=== PATIENT | male | born 1990 | race Caucasian/White ===

== ENCOUNTER 2024-12-28 22:47 | Emergency (ER) | payer OTHER, SELFPAY ==
[2024-12-28 22:49] VITALS: BMI 24.3
--- NOTE | 2024-12-28 22:57 | EKG_ITS ---
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
[2024-12-28 23:03] VITALS: BP 123/80; PULSE 136; RESP 18; TEMP 36.7; O2SAT 97
--- NOTE | 2024-12-28 23:20 | EDNOTE_ITS ---
<Statement entered by Emilia Mandujano MD - 12/29/24 04:03> As co-signing physician, I was present and available for consult prn. I concur with the plan and care as documented by the midlevel provider. 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 Limitations: no limitations Related Data Home Medications ?Medication ?Instructions ?Recorded ?Confirmed ibuprofen 600 mg tablet 600 mg PO QID PRN 07/18/18 Previous Rx's ?Medication ?Instructions ?Recorded arm brace (Elbow Strap) ##1 03/08/17 epinephrine 0.3 mg/0.3 mL 0.3 ml subcut QDAY PRN 12/29 injection, auto-injector hypersensitivity reaction #2 ea prednisone 50 mg tablet 50 mg PO QDAY 4 days #4 tabs 12/29/24 Allergies Allergy/AdvReac Type Severity Reaction Status Date / Time Penicillins Allergy Unknown Verified 07/18/18 17:11 Review of Systems Review of Systems Systems Reviewed: All systems reviewed, normal except as documented Constitutional Constitutional: Reports system reviewed and no additional complaints, except as documented, Denies fever(s) and Denies headache(s) ENT Ears, Nose, Mouth, and Throat: Denies disequilibrium and Denies headache(s) Cardiovascular Cardiovascular: Reports system reviewed and no additional complaints, except as documented, Denies chest pain and Reports dyspnea Respiratory Respiratory: Reports system reviewed and no additional complaints, except as documented, Reports as per HPI, Denies cough and Reports dyspnea Gastrointestinal Gastrointestinal: Reports system reviewed and no additional complaints, except as documented, Denies abdominal pain, Denies nausea and Denies vomiting Integumentary/Breasts Skin/Breast: Reports as per HPI, Reports pruritus, Reports rash and Reports skin swelling Neurologic Neurologic: Reports system reviewed and no additional complaints, except as documented, Denies confusion, Denies disequilibrium and Denies headache(s) Psychiatric Psychiatric: Denies confusion Past Medical History Past Medical History CARDIAC: Negative Congestive Heart Failure RESPIRATORY: Negative Chronic Obstructive Pulmonary Disease (COPD) GENITOURINARY: Negative Renal Disease ENDOCRINE: Negative Diabetes Mellitus Type 1 or Diabetes Mellitus Type 2 Social History SMOKING STATUS: Never smoker ED Exam General Limitations: Present no limitations General appearance: Present alert and in no apparent distress Head Head exam: Present atraumatic Eye Eye exam: Present normal appearance, PERRL and EOMI ENT ENT exam: Present mucous membranes moist and other (L facial swelling) Expanded ENT Exam Throat exam: Present tonsillomegaly (mild); Absent tonsillar erythema, tonsillar exudate, R peritonsillar mass, L peritonsillar mass or muffled voice Neck Neck exam: Present normal inspection, full ROM and trachea midline Chest Chest inspection: Present normal inspection and symmetric chest wall rise Respiratory Respiratory exam: Present normal lung sounds bilaterally Cardiovascular Cardiovascular exam: Present regular rate, normal rhythm and normal heart sounds Abdominal Exam Abdominal exam: Present soft and normal bowel sounds Extremities Exam Extremities exam: Present normal inspection and full ROM Back Exam Back exam: Present normal inspection and full ROM Neurological Exam Neurological exam: Present alert, oriented X3 and CN II-XII intact Psychiatric Psychiatric exam: Present normal affect and normal mood Skin Skin exam: Present warm, dry, intact and normal color Course Quality Measures none Orders Category Date Time Status School Age Program Associate Q4H START 00 Care 12/28/24 23:10 Active EKG (ED ONLY) *Do not use* NOW Care 12/28/24 22:57 Completed Insert IV NOW Care 12/28/24 23:09 Active EKG (ED Only) Stat Exams 12/28/24 22:57 Draft DiphenhydrAMINE INJ [Benadryl Inj] Med 12/28/24 23:09 Discontinued 50 mg IVP X1 ONE EPINEPHrine Inj [Adrenalin Inj] Med 12/28/24 23:09 Discontinued 0.5 mg IM X1 ONE Famotidine Inj [Pepcid Inj] Med 12/28/24 23:09 Discontinued 20 mg IVP X1 ONE MethylPREDNISolone.* [SoluMEDROL Inj] Med 12/28/24 23:09 Discontinued 125 mg IVP X1 ONE Sodium Chloride 0.9% 1000 ml [Ns] 1,000 ml Med 12/28/24 23:09 Discontinued IV 999 mls/hr Vital Signs Vital signs: Vital Signs Temperature 98.1 F 12/28/24 23:03 Pulse Rate 136 H 12/28/24 23:03 Respiratory Rate 18 02/22/25 23:03 Blood Pressure 123/80 12/28/24 23:03 Pulse Oximetry (%) 97 12/28/24 23:03 Oxygen Delivery Method Room Air 12/28/24 23:03 O2 at 97% on RA and WNLs Allergic Reaction MDM Narrative MDM Narrative:: 34M with history of unknown cardiac disorder (on metoprolol) presents to ED with SOB, generalized itchiness, and facial swelling for 1 hour after taking his dog out on a run. Physical exam reveals L facial swelling with some/mild oropharyngeal swelling, but clear lungs. Generalized urticarial rash. Red conjunctiva. Patient is afebrile, alert, but anxious. Normal WOB. EKG is sinus tach of 130. Significant improvement with meds. Equity Research Analyst and epi-pen prescribed. Patient data External records reviewed:: [facility] previous records Clinical information provided by:: patient Social determinants that could affect healthcare access:: none Patient has the following chronic illnesses:: unknown cardiac disorder (on metoprolol) How is presenting disease/condition affected by chronic disease/condition?: exacerbated by Evaluation data The following diagnostics were reviewed and interpreted by me:: EKG tracing(s) Lab and/or radiology exams considered but not ordered:: ordered Interpretation Summary: above Medications / Prescriptions Medications or Prescriptions considered but not ordered:: ordered Medication administrations:: Medication Administration History Discontinued Medications Diphenhydramine HCl (Diphenhydramine Inj 50 Mg/Ml Vial) 50 mg IVP X1 ONE Stop: 12/28/24 23:10 Last Admin: 12/28/24 23:41 Dose: 50 mg Documented By: JESSICA Epinephrine HCl (Epinephrine Inj 1 Mg/Ml Amp) 0.5 mg IM X1 ONE Stop: 12/28/24 23:10 Last Admin: 12/28/24 23:41 Dose: 0.5 mg Documented By: JESSICA Famotidine (Famotidine Inj 10 Mg/Ml Vial 2 Ml) 20 mg IVP X1 ONE Stop: 12/28/24 23:10 Last Admin: 12/28/24 23:41 Dose: 20 mg Documented By: JESSICA Sodium Chloride (Ns) 1,000 mls @ 999 mls/hr IV .Q1H1M ONE Stop: 12/29/24 00:09 Last Infusion: 12/29/24 00:12 Dose: Infused Documented By: Admin: 12/28/24 23:35 Dose: 999 mls/hr Documented By: JESSICA Methylprednisolone Sodium Succinate (Methylprednisolone Sod Succ 62.5 Mg/Ml 2ml Vial) 125 mg IVP X1 ONE Stop: 12/28/24 23:10 Last Admin: 12/28/24 23:40 Dose: 125 mg Documented By: JESSICA above Consultations Consultation(s) initiated? (list below): No Diagnosis Differential Diagnosis allergic reaction: anaphylaxis, allergic reaction, angioedema, contact dermatitis, adverse reaction to drug, viral enanthem and urticaria Most likely diagnosis given after review of the tests above:: anaphylactic reaction Admission Indicated Admission indicated?: not indicated Admission Request Was there a request for admission?: No Disposition Plan Disposition Plan: Discharge Discharge Attestation Discharge Attestation: The patient and all family members were given an opportunity to ask questions and understood the discharge instructions. Discharge instructions specifically effects, indications for sooner follow up or return to the emergency department, and the expected course of current diagnosis. Patient condition: Stable Discharge Plan Plan Patient Disposition: HOME (Self Care) Disposition Comment: Stable Prescriptions/Referrals Prescriptions/Med Rec: New epinephrine 0.3 mg/0.3 mL auto-injector 0.3 ml subcut QDAY PRN (Reason: hypersensitivity reaction) Qty: 2 0RF prednisone 50 mg tablet 50 mg PO QDAY 4 Days Qty: 4 0RF No Action ibuprofen 600 mg tablet 600 mg PO QID PRN (DME) arm brace [Elbow Strap] 1 EACH misc Qty: 1 0RF Rx Instructions: wear on right elbow as needed for pain Referrals: No Primary/Family,Physician [Primary Care Provider] - In 1 week Problem List Clinical Impression: Anaphylactic reaction Patient/Caregiver Discharge Instructions Education Materials: ED Anaphylaxis Additional Instructions: Please follow-up with PCP within 24-48 hours and return immediately if symptoms worsen. Take OTC antihistamine as needed until symptoms resolve. Finish entire steroid course. Print Language: [place] Stand Alone Forms: Patient Portal Info Letter MARY/HELEN Supervising Physician MARY/HELEN Supervising Physician: Dr. Mandujano
[2024-12-28] MEDS: SODIUM CHLORIDE 0.9% 1000 ML 1,000 ML 999 ML IV (23:35)
[2024-12-28] MEDS: MethylPREDNISolone SOD SUCC 62.5 MG/ML 2ML VIAL 125 MG IVP (23:40)
[2024-12-28 23:41] VITALS: BP 132/84; PULSE 120
[2024-12-28] MEDS: EPINEPHrine INJ 1 MG/ML AMP 0.5 MG IM (23:41)
[2024-12-28] MEDS: FAMOTIDINE INJ 10 MG/ML VIAL 2 ML 20 MG IVP (23:41)
[2024-12-28] MEDS: DiphenhydrAMINE INJ 50 MG/ML VIAL IVP (23:41)
[2024-12-28 23:44] VITALS: BP 105/80; PULSE 122; RESP 20; O2SAT 96
[2024-12-28 23:45] VITALS: BP 105/80; PULSE 117; RESP 19; O2SAT 96
[2024-12-28 23:46] VITALS: PULSE 117
[2024-12-29] VITALS: BP 109/58; PULSE 104; RESP 16; O2SAT 95
[2024-12-29 00:04] VITALS: BP 109/58; PULSE 117; RESP 17; TEMP 36.6; O2SAT 97
[2024-12-29 00:30] VITALS: BP 98/50; PULSE 100; RESP 16; O2SAT 94
[2024-12-29 01:00] VITALS: BP 115/62; PULSE 97; RESP 16; O2SAT 95
[2024-12-29 01:30] VITALS: BP 91/51; PULSE 85; RESP 15; O2SAT 94
[2024-12-29 02:00] VITALS: BP 110/51; PULSE 77; RESP 22; O2SAT 93
== END 2024-12-29 02:16 | disposition home or self-care (01) ==
PROVIDERS: Emergency Provider Emergency Medicine
DX: T78.2XXA Anaphylactic shock, unspecified, initial encounter (principal); X58.XXXA Exposure to other specified factors, initial encounter
CPT/HCPCS: 93005; 96361; 96372; 96374; 96375; 99284; J0171; J1200; J2919; J3490; J7030

== ENCOUNTER → 2025-01-27 | Outpatient (CLI) | payer OTHER, SELFPAY ==
[2025-01-27 08:16] LABS: Collection Type, Urine Clean Catch; Squamous Epithelial Cell,Urine 0 /hpf (0-5)
[2025-01-27 08:44] LABS: Basophils % (Auto) 0 % (0-2.5); Eosinophils # (Auto) 0.1 Thou/mm3 (0.0-0.5); Eosinophils % (Auto) 3 % (0-10); Hematocrit 42.6 % (41.0-53.0); Hemoglobin 14.6 g/dL (13.5-16.0); Immature Granulocytes % (Auto) 0 % (0-0); Immature Granulocytes Auto 0.02 Thou/mm3 (0.00-0.00); Lymphocytes # (Auto) 1.8 Thou/mm3 (1.0-4.8); Lymphocytes % (Auto) 39 % (10-50); Mean Corpuscular HGB Conc 34.3 g/dl (31.0-37.0); Mean Corpuscular Hemoglobin 30.5 pg (25.0-35.0); Mean Corpuscular Volume 89 fL (80-100); Monocytes # (Auto) 0.5 Thou/mm3 (0.0-0.8); Monocytes % (Auto) 11 % (0-12); Neutrophils # (Auto) 2.1 Thou/mm3 (1.8-7.7); Neutrophils % (Auto) 46 % (37-80); Nucleated Red Blood Cell % 0 /100 WBC (0); Platelet Count 170 Thou/mm3 (140-440); RDW Standard Deviation 43.2 fL (35.1-43.9); Red Blood Count 4.78 Miln/mm3 (4.50-5.90); White Blood Count 4.5 Thou/mm3 (3.8-10.6)
[2025-01-27 09:01] LABS: Alanine Aminotransferase 26 U/L (10-49); Albumin, Serum 4.3 gm/dL (3.5-5.0); Alkaline Phosphatase 47 U/L (46-116); Anion Gap 7 (7-16); Aspartate Amino Transferase 25 U/L (0-34); BUN/Creatinine Ratio 19 Ratio (12-20); Bilirubin,Total 0.9 mg/dL (0.3-1.2); Blood Urea Nitrogen 21 mg/dL (9-23); Calcium 9.4 mg/dL (8.3-10.6); Calcium (Corrected) 9.4 mg/dL (8.5-10.1); Carbon Dioxide 29.8 mMol/L (20.0-31.0); Cardiac Risk Estimate 2.9 RATIO (4.0-6.7); Chloride 105 mMol/L (98-107); Cholesterol 174 mg/dL (132-200); Creatinine (Component) 1.1 mg/dL (0.6-1.3); Globulin 2.2 gm/dL (2.3-3.5); Glucose 90 mg/dL (74-106); HDL Cholesterol 60 mg/dL (40-60); LDL Cholesterol,Calculated 101 mg/dL (0-130); Osmolality,Calculated 286 (275-295); Potassium 4.4 mMol/L (3.4-5.1); Sodium 142 mMol/L (136-145); Thyroid Stimulating Hormone 0.86 uIU/mL (0.55-4.78); Total Protein 6.5 gm/dL (5.7-8.2); Triglycerides 67 mg/dL (30-150); eGFR > 60 See Note
[2025-01-27 09:25] LABS: Bilirubin,Urine Negative (Negative); Blood,Urine Negative (Negative); Clarity,Urine Clear (Clear/Hazy); Color,Urine Yellow (Lt Yel-Yel); Culture Indicated,Urine Not Indicated; Glucose, Urine Negative (Negative); Ketones,Urine 1+ (Negative); Leukocyte Esterase,Urine Negative (Negative); Nitrite,Urine Negative (Negative); Protein,Urine Trace (Neg - Trace); RBC,Urine 2 /hpf (0-3); Specific Gravity,Urine 1.032 (1.001-1.035); Urobilinogen,Urine Negative mg/dL (0.0-1.0); WBC,Urine < 1 /hpf (0-5)
[2025-01-27 09:31] LABS: Glucose Estimated Average 91 mg/dL (80-131); Hemoglobin A1C 4.8 % Hgb (4.8-6.0)
== END | disposition home or self-care (01) ==
PROVIDERS: PCP Nurse Practitioner Family; Referring Provider Nurse Practitioner Family; Visit Provider Nurse Practitioner Family
DX: Z00.00 Encounter for general adult medical examination without abnormal findings (principal)
CPT/HCPCS: 36415; 80053; 80061; 81001; 83036; 84443; 85025